=== PATIENT | male | born 2005 | race Caucasian/White ===

== ENCOUNTER 2025-02-05 17:45 | Emergency (ER) | payer OTHER, SELFPAY ==
[2025-02-05 17:48] VITALS: BP 153/72
--- NOTE | 2025-02-05 18:32 | ED.GENMED ---
History of Present Illness
General
Chief Complaint: Skin Surface Trauma
Source: patient
Time Seen by Provider: 02/05/25 17:52
History of Present Illness
History of Present Illness:
19-year-old male presents to the emergency room with parents for evaluation of emotional outbreak. Patient has autism and has periodic outburst when he becomes frustrated. Today became frustrated with the slowness of his computer. Patient makes
videos and does various things on the computer and becomes frustrated when there are delays in buffering. This outburst was traumatic and he injured his right hand by biting it. Family states that his emotional outburst had been well-controlled up
until recently. Immunizations are up-to-date.
Past History
Past History
ED Past Medical History: Seizures and Other (autism, Microcephaly, Speak usually only one word)
ED Past Surgical History: Urological (Hypospadias X 2)
Social History
Tobacco: Non-smoker
Alcohol: None
Drug: None
Personal: Single
Living: with family (Mom)
Phy Exam
Physical Exam
Physical Exam:
General: Awake, Alert, developmentally delayed, autistic. Facial twitches, minimally verbal
Vitals: unremarkable
Head: Atraumatic
Eyes: Pupils equal, EOMI
Throat: Airway intact, no exudates
Neck: Trachea midline
Lungs: Clear and equal b/l
Heart: Regular rate, no murmurs
Abd: Soft, Nontender, No pulsatile mass
Neuro: Nonfocal
Skin: Warm, dry, no rash not
Extremities: pulses equal b/l, no edema. Superficial abrasion right wrist from self-inflicted bite.
Course
Orders/Labs/Results
Orders:
Orders
02/05/25 18:01
Crisis Consult Urgent
Reason for Consult: mother request for autistic pt behavior
02/05/25 18:31
Lorazepam [Ativan] 2 mg PO NOW STA
Vital Signs
Initial and Last Documented VS:
Initial Vital Signs
Temp Pulse Resp BP Pulse Ox
97.9 F 120 20 153/72 100
02/05/25 17:48 02/05/25 17:48 02/05/25 17:48 02/05/25 17:48 02/05/25 17:48
Last Documented Vital Signs
Temp Pulse Resp BP Pulse Ox
97.9 F 119 20 153/72 99
02/05/25 17:48 02/05/25 20:39 02/05/25 20:39 02/05/25 17:48 02/05/25 20:39
MDM/Problems Addressed
Differential Diagnosis Includes:
Abrasion, laceration
MDM/Problems Addressed:
Patient had self-inflicted bite to the right forearm. Injuries are very superficial. No further treatment needed. Crisis consult placed. Resources provided by crisis. Patient is otherwise stable for discharge home.
*Pulse Oximetry
Patient hypoxic: no
*Critical Care Note
Total Time (30-74mins, 75-104mins- exclusive of procedures): Not Applicable
ED Attending Note
-
Portions of this chart may have been created with voice recognition software.� Occasional wrong word or��sound alike� substitutions may have occurred due to the inherent limitations of voice recognition software.
Discharge Plan
Departure
Patient Disposition: Home (Routine Discharge)
Date of Disposition: 02/05/25
Time of Disposition: 20:42
Patient with high blood pressure during this ER visit?: No
Condition: Good
Discharge Problem:
Abrasion of right forearm, Human bite
Instructions: Wound Care (DC)
Prescriptions:
No Action
fluoxetine 40 mg Capsule
80 mg PO DAILY
clonidine HCl 0.1 mg Tablet
0.1 mg PO DAILY
naltrexone 50 mg Tablet
50 mg PO BID
clonidine HCl 0.3 mg Tablet
0.3 mg PO HS
divalproex [Depakote] 500 mg Tablet,Delayed Release (Dr/Ec)
500 mg PO BID
levothyroxine 50 mcg Tablet
50 mcg PO DAILY
metformin 1,000 mg Tablet
1,000 mg PO BID
quetiapine [Seroquel] 400 mg Tablet
400 mg PO BID
Referrals:
Grover Leon MD [Primary Care Provider] -
Interventions
Interventions:
*Risk Screen - Suicide Last Done: 02/05/25 17:48
*General Assessment Last Done: 02/05/25 17:48
*Neglect/Abuse Screening Last Done: 02/05/25 17:48
*ED- Fall Risk Assessment Last Done: 02/05/25 17:48
*Nursing Disposition Last Done: 02/05/25 20:54
ED-Skin Assessment Last Done: 02/05/25 20:45
Discharge Date and Time
Discharge Date/Time: 02/05/25 20:56
Print Language: SOMALI
[2025-02-05] MEDS: ATIVAN 2 MG PO (18:38)
== END 2025-02-05 20:56 | disposition home or self-care (01) ==
LOC: EMR 17:45
PROVIDERS: EMERGENCY PHYSICIAN Emergency Medicine; PRIMARYCARE PHYSICIAN Family Medicine
DX: S50.811A Abrasion of right forearm, initial encounter (principal); Y04.1XXA Assault by human bite, initial encounter; F84.0 Autistic disorder
CPT/HCPCS: 99282

== ENCOUNTER 2025-05-17 15:49 | Emergency (ER) | payer OTHER, SELFPAY ==
[2025-05-17 15:53] VITALS: BP 157/102
--- NOTE | 2025-05-17 16:23 | ED.SKININJ ---
HPI-Injury
General
Chief Complaint: Head Injury
Source: patient and family (Mother at bedside)
Exam Limitations: developmental stage (Autistic)
Time Seen by Provider: 05/17/25 16:16
History of Present Illness-Injury
Initial Injury comments:
19-year-old autistic male arrives from home with his mother with a wound on the anterior surface at the mid frontal scalp line. He has a tendency to go into rages and he did so while he was holding a heavy glass bottle and he smashed it into his
forehead. He is up-to-date with his tetanus immunization.
Past History
Past History
ED Past Medical History: Seizures and Other (autism, Microcephaly, Speak usually only one word)
ED Past Surgical History: Urological (Hypospadias X 2)
Social History
Tobacco: Non-smoker
Alcohol: None
Drug: None
Personal: Single
Living: with family (Mom)
Review of Systems
Review of Systems
Allergies reviewed?: Yes
All Other Systems: ROS reviewed and negative except as documented in HPI and ROS
ABD/GI: Denies vomiting
Skin: Reports other (Wound mid forehead at hairline)
Phy Exam
Physical Exam
Physical Exam:
GENERAL: No acute distress. Alert,
CONSTITUTIONAL: Afebrile.
EYES: clear, conjunctivae normal
RESPIRATORY: Regular respirations, nonlabored, lungs clear.
CARDIOVASCULAR: Regular rate and rhythm, no murmurs, no rubs.
GI: Soft, nontender, normal BS
MUSCULOSKELETAL: Moves with ease. Well perfused.
SKIN: Warm, dry, pink. 1 cm V shaped laceration frontal scalp at hairline, no active bleeding.
PSYCH: Normal mood and affect. Well kept, interactive, occasional mild outbursts but generally cooperative
NEUROLOGIC: Awake, alert. Autistic No focal neurological deficits
Course
Orders/Labs/Results
Orders:
Orders
05/17/25 16:18
Lidocaine/Epinephrine/Tetracai [Let Topical Anesthetic Gel] 3 ml .ROUTE .STK-MED ONE
05/17/25 16:23
Lidocaine/Epinephrine/Tetracai [Let Topical Anesthetic Gel] 3 ml TOPICAL NOW STA
Vital Signs
Initial and Last Documented VS:
Initial Vital Signs
Pulse Resp BP Pulse Ox
110 18 157/102 97
05/17/25 15:53 05/17/25 15:53 05/17/25 15:53 05/17/25 15:53
Last Documented Vital Signs
Pulse Resp BP Pulse Ox
110 18 157/102 97
05/17/25 15:53 05/17/25 15:53 05/17/25 15:53 05/17/25 16:26
Procedures
Laceration Closure
anterior scalp at hairline:
Status of Wound: clean
Size of Wound in cm: 1
Description of Wound Edges: sharp
Preparation: cleaned with saline
Anesthesia: Topical-LET
Revision/Debridement: routine- no revision
Wound exploration: explored to base- no FB
Type of Closure: Dermabond-skin glue
MDM/Problems Addressed
MDM/Problems Addressed:
19-year-old autistic male arrives from home with his mother with a wound on the anterior surface at the mid frontal scalp line. He has a tendency to go into rages and he did so while he was holding a heavy glass bottle and he smashed it into his
forehead. He is up-to-date with his tetanus immunization.
Wound edges well approximated with wound glue
*Pulse Oximetry
SaO2: 97
Oxygen Mode of Delivery: Room air
Patient hypoxic: not evaluated
*Critical Care Note
Total Time (30-74mins, 75-104mins- exclusive of procedures): Not Applicable
ED Attending Note
-
Portions of this chart may have been created with voice recognition software.� Occasional wrong word or��sound alike� substitutions may have occurred due to the inherent limitations of voice recognition software.
Discharge Plan
Departure
Patient Disposition: Home (Routine Discharge)
Date of Disposition: 05/17/25
Time of Disposition: 17:18
Patient with high blood pressure during this ER visit?: No
Condition: Good
Discharge Problem:
Laceration of scalp
Instructions: Laceration Repair With Glue (DC), Minor Head Injury (DC)
Prescriptions:
No Action
fluoxetine 40 mg Capsule
80 mg PO DAILY
clonidine HCl 0.1 mg Tablet
0.1 mg PO DAILY
naltrexone 50 mg Tablet
50 mg PO BID
clonidine HCl 0.3 mg Tablet
0.3 mg PO HS
divalproex [Depakote] 500 mg Tablet,Delayed Release (Dr/Ec)
500 mg PO BID
levothyroxine 50 mcg Tablet
50 mcg PO DAILY
metformin 1,000 mg Tablet
1,000 mg PO BID
quetiapine [Seroquel] 400 mg Tablet
400 mg PO BID
Referrals:
Grover Leon MD [Family Provider, Family Practice] - As needed
Activity Restrictions/Additional Instructions:
As we discussed, it takes 5 to 7 days for this area to heal. You may briefly wet the area in the shower or bath just do not rub it or apply any for 7 days.
The glue should slough off within the next 2 weeks
Interventions
Interventions:
*Risk Screen - Suicide Last Done: 05/17/25 15:53
*General Assessment Last Done: 05/17/25 17:44
*Neglect/Abuse Screening Last Done: 05/17/25 15:53
*ED- Fall Risk Assessment Last Done: 05/17/25 17:44
*ED COVID-19 Vaccine History Last Done: 05/17/25 17:44
*Nursing Disposition Last Done: 05/17/25 17:44
ED- Neurological Assessment Last Done: 05/17/25 16:24
ED-Skin Assessment Last Done: 05/17/25 16:24
Discharge Date and Time
Discharge Date/Time: 05/17/25 17:46
Print Language: RUSSIAN
[2025-05-17] MEDS: LET TOPICAL ANESTHETIC GEL 3 ML TOPICAL (16:27)
== END 2025-05-17 17:46 | disposition home or self-care (01) ==
LOC: EMR 15:49
PROVIDERS: EMERGENCY PHYSICIAN Emergency Medicine; FAMILY PHYSICIAN Family Medicine
DX: S01.01XA Laceration without foreign body of scalp, initial encounter (principal); W25.XXXA Contact with sharp glass, initial encounter; F84.0 Autistic disorder
CPT/HCPCS: 12001; 99282